=== PATIENT | female | born 1975 | race Caucasian/White ===

== ENCOUNTER 2017-10-27 20:54 | Inpatient (IN) | payer MEDICAID ==
[~2017-10-27] VITALS: Ht 162.6 cm; Wt 88.5 kg
[2017-10-27] MEDS ORDERED: ACETAMINOPHEN 325MG TABLET PO STA (21:16)
[2017-10-27] MEDS ORDERED: SODIUM CHLORIDE 0.9% 1,000 ML IV ONE (21:16)
[2017-10-27] MEDS ORDERED: SODIUM CHLORIDE 0.9% 1000ML BAG (SEPSIS BOLUS) IV ONE (22:15)
[2017-10-27] MEDS ORDERED: VANCOMYCIN 1 G PREMIX 200 ML IV SCH (22:15)
[2017-10-27] MEDS ORDERED: PIPERACILLIN/TAZ 3.375G PREMIX 50 ML IV ONE (22:15)
[2017-10-27 23:02] LABS: BASOPHILS % 0.3 % (0.0-2.0); EOSINOPHILS % 0.2 % (0.0-5.0); HEMATOCRIT. 42.8 % (36.0-48.0); LYMPHOCYTES % 17.7 % (20.0-50.0); MEAN CORPUSCULAR VOLUME 82.7 fL (81.0-99.0); MONOCYTES % 4.5 % (2.0-8.0); NEUTROPHILS % 77.3 % (40.0-76.0); PLATELET 351 x1000/uL (130-400); RED BLOOD CELL COUNT 5.18 mill/uL (4.2-5.4); RED CELL DISTRIBUTION WIDTH 14.4 % (11.6-14.6)
[2017-10-27 23:03] LABS: HCG SCREEN NEGATIVE
[2017-10-27 23:06] LABS: CHLORIDE 83 mEq/L (98-107)
[2017-10-27] MEDS ORDERED: KCL 10MEQ/50ML PREMIX 50 ML IV ONE (23:15)
[2017-10-27] MEDS ORDERED: POTASSIUM CHLORIDE 20MEQ TABLET SR PO ONE (23:15)
[2017-10-27 23:26] LABS: INR 1.1; PARTIAL THROMBOPLASTIN TIME 32.1 sec (23.4-31.0)
[2017-10-28] VITALS (11 sets, daily range): BP systolic 90–142; BP diastolic 51–87
[2017-10-28] MEDS ORDERED: GABA-290 PO (04:10)
[2017-10-28] MEDS ORDERED: ATOR10TA69 MT (04:13)
[2017-10-28] MEDS ORDERED: PANT40TA4 MT (04:13)
[2017-10-28] MEDS ORDERED: LOPE2TAB26 PO (04:13)
[2017-10-28] MEDS ORDERED: NPH,100V SQ (04:14)
[2017-10-28] MEDS ORDERED: INSLIS SUBCUT (04:15)
[2017-10-28] MEDS ORDERED: CLONIDINE 0.1MG TABLET PO PRN (04:30)
[2017-10-28] MEDS ORDERED: ACETAMINOPHEN 325MG TABLET PO PRN (04:30)
[2017-10-28] MEDS ORDERED: MAGNESIUM/ALUMINUM HYDROXIDE/SIMETHICONE 30ML UDC PO PRN (04:30)
[2017-10-28] MEDS ORDERED: ONDANSETRON HCL 4MG/2ML VIAL IV PRN (04:30)
[2017-10-28] MEDS ORDERED: ONDANSETRON 4MG ODT PO PRN (05:00)
[2017-10-28] MEDS ORDERED: DEXTROSE 50% WATER 50ML SYRINGE IV PRN (05:30)
[2017-10-28] MEDS ORDERED: DEXT 5%/0.45% NACL KCL 10MEQ/L 1,000 ML IV SCH (06:00)
[2017-10-28] MEDS ORDERED: KCL 10MEQ/50ML PREMIX 50 ML IV SCH (06:00)
[2017-10-28] MEDS: BLOOD SUGAR DIAGNOSTIC STRIP TEST SCH ×4 (08:21→21:06)
[2017-10-28] MEDS: ASPIRIN 81MG EC TABLET PO SCH (08:28)
[2017-10-28] MEDS: ENOXAPARIN 40MG/0.4ML SYR SUBCUT SCH (08:29)
[2017-10-28] MEDS: INSULIN LISPRO 100 UNITS/ML SUBCUT SCH ×5 (08:32→21:15)
[2017-10-28] MEDS: AMLODIPINE 10MG TABLET PO SCH (08:33)
[2017-10-28 13:59] LABS: CHLORIDE 94 mEq/L (98-107)
[2017-10-28] MEDS ORDERED: POTASSIUM CHLORIDE 20MEQ TABLET SR PO NR (14:45)
[2017-10-28] MEDS: INSULIN NPH (HUMULIN-N) 100 UNITS/ML 3ML VIAL SUBCUT SCH (21:15)
[2017-10-28] MEDS ORDERED: GABAPENTIN 300MG CAPSULE PO SCH (22:00)
[2017-10-29] VITALS (9 sets, daily range): BP systolic 79–135; BP diastolic 45–84
[2017-10-29 06:55] LABS: BASOPHILS % 0.3 % (0.0-2.0); EOSINOPHILS % 0.5 % (0.0-5.0); HEMOGLOBIN. 11.2 g/dL (12.0-16.0); LYMPHOCYTES % 29.8 % (20.0-50.0); MEAN CORPUSCULAR HEMOGLOBIN 29.4 pg (28.0-32.0); MEAN CORPUSCULAR VOLUME 83.6 fL (81.0-99.0); MONOCYTES % 8.5 % (2.0-8.0); NEUTROPHILS % 60.9 % (40.0-76.0); PLATELET 259 x1000/uL (130-400); RED BLOOD CELL COUNT 3.82 mill/uL (4.2-5.4); RED CELL DISTRIBUTION WIDTH 14.8 % (11.6-14.6)
[2017-10-29 07:44] LABS: CHLORIDE 99 mEq/L (98-107)
[2017-10-29] MEDS: BLOOD SUGAR DIAGNOSTIC STRIP TEST SCH ×4 (08:19→20:44)
[2017-10-29] MEDS: POTASSIUM CHLORIDE 20MEQ TABLET SR PO SCH (08:44)
[2017-10-29] MEDS: ASPIRIN 81MG EC TABLET PO SCH (08:44)
[2017-10-29] MEDS: AMLODIPINE 10MG TABLET PO SCH (08:44)
[2017-10-29] MEDS: ENOXAPARIN 40MG/0.4ML SYR SUBCUT SCH (08:44)
[2017-10-29] MEDS: INSULIN NPH (HUMULIN-N) 100 UNITS/ML 3ML VIAL SUBCUT SCH ×2 (08:47→20:44)
[2017-10-29] MEDS: INSULIN LISPRO 100 UNITS/ML SUBCUT SCH ×7 (08:51→20:45)
[2017-10-29] MEDS ORDERED: POTASSIUM CHLORIDE INJ 40 MEQ in DEXT 5% WATER 250 ML IV NR (09:30)
[2017-10-29] MEDS ORDERED: LIDOCAINE HCL/EPINEPHRINE 1%-EPI 1:100,000 20 ML VIAL INFIL NR (11:00)
[2017-10-29] MEDS: HYDROCODONE/ACETAMINOPHEN 5/325MG TABLET PO PRN ×2 (15:17→19:03)
[2017-10-29] MEDS ORDERED: POTASSIUM CHLORIDE 20MEQ TABLET SR PO SCH (16:31)
[2017-10-29] MEDS: LOPERAMIDE 2 MG/10 ML UDC PO PRN ×2 (16:35→20:38)
[2017-10-29] MEDS: GABAPENTIN 300MG CAPSULE PO SCH (16:42)
[2017-10-30] VITALS (12 sets, daily range): BP systolic 83–151; BP diastolic 32–76
[2017-10-30] MEDS: LOPERAMIDE 2 MG/10 ML UDC PO PRN ×3 (02:35→17:29)
[2017-10-30] MEDS: HYDROCODONE/ACETAMINOPHEN 5/325MG TABLET PO PRN ×3 (02:35→20:44)
[2017-10-30] MEDS: BLOOD SUGAR DIAGNOSTIC STRIP TEST SCH ×4 (07:46→20:35)
[2017-10-30] MEDS: INSULIN LISPRO 100 UNITS/ML SUBCUT SCH ×7 (08:41→20:36)
[2017-10-30] MEDS: ENOXAPARIN 40MG/0.4ML SYR SUBCUT SCH (08:43)
[2017-10-30] MEDS: AMLODIPINE 10MG TABLET PO SCH (08:44)
[2017-10-30] MEDS: INSULIN NPH (HUMULIN-N) 100 UNITS/ML 3ML VIAL SUBCUT SCH ×2 (08:44→20:46)
[2017-10-30] MEDS: GABAPENTIN 300MG CAPSULE PO SCH ×3 (08:45→17:03)
[2017-10-30] MEDS: ASPIRIN 81MG EC TABLET PO SCH (08:45)
[2017-10-30] MEDS: POTASSIUM CHLORIDE 20MEQ TABLET SR PO SCH (08:45)
[2017-10-31] VITALS (10 sets, daily range): BP systolic 11–111; BP diastolic 42–72
[2017-10-31 00:06] LABS: CHLORIDE 102 mEq/L (98-107)
[2017-10-31] MEDS: BLOOD SUGAR DIAGNOSTIC STRIP TEST SCH ×3 (07:30→17:36)
[2017-10-31] MEDS: INSULIN LISPRO 100 UNITS/ML SUBCUT SCH ×6 (08:00→17:36)
[2017-10-31] MEDS: ENOXAPARIN 40MG/0.4ML SYR SUBCUT SCH (08:45)
[2017-10-31] MEDS: AMLODIPINE 10MG TABLET PO SCH (08:46)
[2017-10-31] MEDS: ASPIRIN 81MG EC TABLET PO SCH (08:46)
[2017-10-31] MEDS: POTASSIUM CHLORIDE 20MEQ TABLET SR PO SCH (08:46)
[2017-10-31] MEDS: HYDROCODONE/ACETAMINOPHEN 5/325MG TABLET PO PRN ×2 (09:50→15:37)
[2017-10-31] MEDS: INSULIN NPH (HUMULIN-N) 100 UNITS/ML 3ML VIAL SUBCUT SCH (09:52)
[2017-10-31] MEDS: LOPERAMIDE 2 MG/10 ML UDC PO PRN (15:34)
[2017-10-31] MEDS ORDERED: MAGNESIUM SULFATE 2 GM in DEXTROSE 5% WATER 50 ML IV NR (16:00)
== END 2017-10-31 18:40 | disposition home or self-care (01) | DRG 317 ==
LOC: ER 21:09 → EDBEDREQ 23:14 → 5EST 23:43 → EDBEDREQ 23:48 → EDBEDREQTM 23:48 → EDBEDREQSVC 23:48 → ENRESERV 10-28 01:17
PROVIDERS: ADMIT Hospitalist; ATTEND Hospitalist
PROC: 0KBT0ZZ Excision of Left Lower Leg Muscle, Open Approach (ICD-10-PCS; principal; 2017-10-30)
DX: T87.81 Dehiscence of amputation stump (principal); R65.21 Severe sepsis with septic shock; A41.9 Sepsis, unspecified organism; L89.150 Pressure ulcer of sacral region, unstageable; E11.51 Type 2 diabetes mellitus with diabetic peripheral angiopathy without gangrene; M25.571 Pain in right ankle and joints of right foot; E87.6 Hypokalemia; K58.0 Irritable bowel syndrome with diarrhea; L98.8 Other specified disorders of the skin and subcutaneous tissue; F17.210 Nicotine dependence, cigarettes, uncomplicated; K21.9 Gastro-esophageal reflux disease without esophagitis; Z59.0 Homelessness; Z89.431 Acquired absence of right foot; Z79.4 Long term (current) use of insulin; Z79.899 Other long term (current) drug therapy; Z89.512 Acquired absence of left leg below knee; Z90.49 Acquired absence of other specified parts of digestive tract; Y83.5 Amputation of limb(s) as the cause of abnormal reaction of the patient, or of later complication, without mention of misadventure at the time of the procedure; Y92.098 Other place in other non-institutional residence as the place of occurrence of the external cause; F17.200 Nicotine dependence, unspecified, uncomplicated
CPT/HCPCS: 36415; 71045; 73630; 80048; 80053; 82962; 83605; 83735; 84134; 84703; 85025; 85610; 85730; 87040; 87070; 87077; 87205; 93005; 93970; 96365; 96367; 99291; A6261; J1650; J1815; J2543; J3370; J3475; J3480; J3490; J7030; J7060